=== PATIENT | female | born 1955 | race Caucasian/White ===

== ENCOUNTER 2020-02-13 16:21 | Emergency (ER) | payer MEDICAID, MEDICARE ==
--- NOTE | 2020-02-13 18:15 | EDM.PDOC ---
ED HPI GENERAL MEDICAL PROBLEM - General Chief Complaint: Lower Extremity Injury/Pain Stated Complaint: LT FOOT INJURY Time Seen by Provider: 02/13/20 16:29 Source of Information: Reports: Patient, RN Notes Reviewed History Limitations: Reports: No Limitations - History of Present Illness INITIAL COMMENTS - FREE TEXT/NARRATIVE: Patient is a 64-year-old female presenting to the emergency department with complaints of pain per left lateral foot and left fourth and fifth toes. She states yesterday she accidentally kicked the edge of a chair in her fifth toe became snagged and pulled on it. She has been having pain since that time. Developed ecchymosis to the area this morning. She is able to ambulate, however it is uncomfortable. Left Feet Pain Score (Numeric/FACES): 5 - Related Data Allergies Allergy/AdvReac Type Severity Reaction Status Date / Time No Known Allergies Allergy Verified 02/13/20 16:43 Home Meds: Home Meds Gabapentin [Neurontin] 800 mg PO BEDTIME 02/13/20 [History] Levothyroxine Sodium [Levoxyl] 100 mcg PO DAILY 02/13/20 [History] Naproxen 500 mg PO BID PRN 02/13/20 [History] Pregabalin [Lyrica] 75 mg PO BEDTIME 02/13/20 [History] clonazePAM [Clonazepam] 1 mg PO BEDTIME 02/13/20 [History] estradioL [Estradiol] 10 mcg VG ASDIRECTED 02/13/20 [History] traZODone HCl [Trazodone HCl] 150 mg PO BEDTIME 02/13/20 [History] Past Medical History Respiratory History: Reports: COPD Musculoskeletal History: Reports: Back Pain, Chronic Neurological History: Reports: Neuropathy, Peripheral Endocrine/Metabolic History: Reports: Hypothyroidism - Past Surgical History HEENT Surgical History: Reports: Adenoidectomy, Naso-Sinus Surgery, Tonsillectomy Cardiovascular Surgical History: Reports: Other (See Below) Other Cardiovascular Surgeries/Procedures: Stents in groin. GI Surgical History: Reports: Cholecystectomy Female Surgical History: Reports: Hysterectomy Neurological Surgical History: Reports: Lumbar Spine Musculoskeletal Surgical History: Reports: Shoulder Surgery Social & Family History - Tobacco Use Tobacco Use Status *Q: Never Tobacco User - Caffeine Use Caffeine Use: Reports: Coffee - Recreational Drug Use Recreational Drug Use: No Review of Systems - Review of Systems Review Of Systems: Comprehensive ROS is negative, except as noted in HPI. ED EXAM, GENERAL - Physical Exam Exam: See Below General Appearance: Alert, WD/WN, No Apparent Distress Respiratory/Chest: No Respiratory Distress, Lungs Clear, Normal Breath Sounds, No Accessory Muscle Use, Chest Non-Tender Cardiovascular: Normal Peripheral Pulses, Regular Rate, Rhythm, No Edema, No Gallop, No JVD, No Murmur, No Rub GI/Abdominal: Normal Bowel Sounds, Soft, Non-Tender, No Organomegaly, No Distention, No Abnormal Bruit, No Mass Extremities: Other (Ecchymosis and tenderness to palpation of the left fourth and fifth toes. No obvious deformity.) Neurological: Alert, Oriented, CN II-XII Intact, Normal Cognition, Normal Gait, Normal Reflexes, No Motor/Sensory Deficits Psychiatric: Normal Affect, Normal Mood Skin Exam: Warm, Dry, Intact, Normal Color, No Rash Course - Vital Signs Last Recorded V/S: Last Vital Signs Temp 98 F 02/13/20 16:40 Pulse 97 02/13/20 16:40 Resp 16 02/13/20 16:40 BP 159/88 H 02/13/20 16:40 Pulse Ox 93 L 02/13/20 16:40 - Orders/Labs/Meds Orders: Active Orders 24 hr Category Date Time Status Foot Comp Min 3V Lt [CR] Stat Exams 02/13/20 17:09 Taken - Re-Assessments/Exams Free Text/Narrative Re-Assessment/Exam: 02/13/20 18:13 X-ray of the left foot was negative for any acute fractures. The left third fourth and fifth toes were gildardo taped together. We will give her a surgical shoe to go home with. Discussed symptomatic treatment. Discharge instructions as documented. Departure - Departure Time of Disposition: 18:14 Disposition: Home, Self-Care 01 Condition: Good Clinical Impression: Sprain of toe, fifth, left Qualifiers: Encounter type: initial encounter Qualified Code(s): S93.505A - Unspecified sprain of left lesser toe(s), initial encounter - Discharge Information *PRESCRIPTION DRUG MONITORING PROGRAM REVIEWED*: No *COPY OF PRESCRIPTION DRUG MONITORING REPORT IN PATIENT EUGENIO: No Referrals: Jeremías Becerril PA-C [Primary Care Provider] - Additional Instructions: You were seen in the emergency department for pain and bruising to your left fourth and fifth toes after injuring it last evening. X-rays were completed and showed no fractures. As we discussed, you likely sprain your toe. Gildardo tape has been applied to the toes. Wear this as needed for comfort over the next few days. You have also been provided with a surgical shoe. Recommend that you ice and elevate the extremity when at rest. Use [id number] Tylenol and ibuprofen as needed for pain. If after a few weeks you are still experiencing significant pain, you may follow-up with podiatry as needed. Return to ER as needed. Sepsis Event Note (ED) - Evaluation Sepsis Screening Result: No Definite Risk - Focused Exam Vital Signs: Vital Signs Temp Pulse Resp BP Pulse Ox 02/13/20 16:40 98 F 97 16 159/88 H 93 L - My Orders Last 24 Hours: My Active Orders 02/13/20 17:09 Foot Comp Min 3V Lt [CR] Stat - Assessment/Plan Last 24 Hours: My Active Orders 02/13/20 17:09 Foot Comp Min 3V Lt [CR] Stat
--- NOTE | 2020-02-14 08:43 | CR ---
PROCEDURE INFORMATION: Exam: XR Left Foot Complete Exam date and time: 02/13/2020 4:57 PM Age: 64 years old Clinical indication: Pain; Left; Patient HX: Lat foot and 4/5th toe px, ecchymosis; Patient jammed foot getting out of bed TECHNIQUE: Imaging protocol: XR Left foot. Views: 3 or more views. COMPARISON: No relevant prior studies available. FINDINGS: Bones/joints: Normal. Soft tissues: Normal. IMPRESSION: No acute findings. Thank you for allowing us to participate in the care of your patient. Dictated and Authenticated by: Cristino Helm MD 02/13/2020 6:35 PM Central Time ([place] & [place]) [facility]ATT[place]
== END 2020-02-13 18:30 | disposition home or self-care (01) ==
LOC: JD.ED 16:21
DX: S93.505A Unspecified sprain of left lesser toe(s), initial encounter (principal); J44.9 Chronic obstructive pulmonary disease, unspecified; G62.9 Polyneuropathy, unspecified; E03.9 Hypothyroidism, unspecified; Z79.899 Other long term (current) drug therapy; W22.8XXA Striking against or struck by other objects, initial encounter
CPT/HCPCS: 73630-26-LT; 73630-LT; 99282; 99283-25